=== PATIENT | female | born 1940 | race Asian ===

== ENCOUNTER 2017-01-11 06:46 | Emergency (ER) | payer MEDICARE, SELFPAY ==
[2017-01-11] MEDS ORDERED: Sodium Chloride 0.9% 500 ML IV SCH (06:55)
[2017-01-11 07:17] VITALS: BP 174/64
[2017-01-11] MEDS ORDERED: Acetaminophen 325 MG Tab PO ONE (07:17)
[2017-01-11] MEDS ORDERED: Ondansetron 4 MG/2 ML SDV IVPUSH ONE (07:22)
--- NOTE | 2017-01-11 07:41 | EDM.PDOC ---
ED HPI GENERAL MEDICAL PROBLEM - General Chief Complaint: Fever Stated Complaint: WELFARE CHECK Time Seen by Provider: 01/11/17 07:06 Source of Information: Reports: Patient, EMS History Limitations: Reports: Altered Mental Status, Physical Impairment - History of Present Illness INITIAL COMMENTS - FREE TEXT/NARRATIVE: 76 y.o.f with ESRD, on HD, was found down at home in disarray. On arrival, her BP was 177/76 pulse 110, Temp 39.1 pulse ox 99% on RA. Pt responds well to verbal stimuli but appears lethargic. Pt is a poor historian, no family is present. Onset: Gradual Onset Date: 01/11/17 Onset Time: 08:00 Duration: Hour(s): Location: Reports: Chest Quality: Reports: Dull Severity: Moderate - Related Data Allergies Allergy/AdvReac Type Severity Reaction Status Date / Time etodolac [From Lodine] Allergy Rash Verified 01/11/17 07:32 Iodinated Contrast- Oral and Allergy Swelling Verified 01/11/17 07:32 IV Dye [Iodinated Contrast Media - IV Dye] leflunomide [From Arava] Allergy Swollen Verified 01/11/17 07:32 Tongue morphine [From MS Contin] Allergy Itching Verified 01/11/17 07:32 naproxen [From Naprosyn] Allergy Hives Verified 01/11/17 07:32 Penicillins Allergy Hives Verified 01/11/17 07:32 prednisolone Allergy Cannot Verified 01/11/17 07:32 Remember SALMON OIL (HALIBUT LIVER Allergy Vomiting Uncoded 07/25/16 08:57 OIL) Home Meds: Home Meds Isosorbide Mononitrate [Imdur] 30 mg PO DAILY 08/31/15 [History] predniSONE [Prednisone] 5 mg PO DAILY 08/31/15 [History] Acetaminophen [Tylenol Extra Strength] 1,000 mg PO Q8HR PRN 07/25/16 [History] Albuterol/Ipratropium [Combivent Respimat] 1 puff IH BID 07/25/16 [History] Allopurinol [Allopurinol] 100 mg PO ASDIRECTED 07/25/16 [History] Aspirin [Adult Low Dose Aspirin EC] 81 mg PO DAILY 07/25/16 [History] Calcium Acetate 667 mg PO DAILY 07/25/16 [History] Calcium Carbonate/Vitamin D3 [Os-Abdiaziz 500+D] 1 each PO DAILY 07/25/16 [History] Clobetasol [Clobetasol Propionate 0.05%] 30 gm TOP BID PRN 07/25/16 [History] Clobetasol/Skin Cleanser #28 [Clodan 0.05% Kit] 1 each TP DAILY PRN 07/25/16 [ History] Cyclobenzaprine [Flexeril] 5 mg PO BID PRN 07/25/16 [History] Doxercalciferol [Hectorol] 0 - 10 mcg IV ASDIRECTED 07/25/16 [History] Epoetin Davon [Epogen] 0 - 60,000 unit IJ ASDIRECTED 07/25/16 [History] Esomeprazole [NexIUM] 40 mg PO DAILY 07/25/16 [History] Estrogens, Conjugated [Premarin Vaginal Crm] 1 gm VAG BEDTIME 07/25/16 [History] Ezetimibe [Zetia] 10 mg PO DAILY 07/25/16 [History] Fluticasone Propionate [Flonase] 2 spr CLAUDINE DAILY 07/25/16 [History] Fluticasone/Vilanterol [Breo Ellipta 200-25 Mcg INH] 1 puff ORAL.INH DAILY 07/25 [History] Folic Acid 1 mg PO DAILY 07/25/16 [History] Furosemide [Furosemide] 20 mg PO DAILY 07/25/16 [History] Gabapentin [Neurontin] 100 mg PO BID 07/25/16 [History] Hydrocodone/Acetaminophen [[place] 5-325 Tablet] 0.5 - 1 tab PO TID 07/25/16 [ History] Insulin Glarg,Human.Rec.Analog [Lantus Solostar] 5 units SUBCUT BID 07/25/16 [ History] LORazepam 0.5 mg PO BID 07/25/16 [History] Losartan [Cozaar] 100 mg PO DAILY 07/25/16 [History] Multivit with Calcium,Iron,Min [One Daily with Calcium-Iron] 1 tab PO DAILY [History] Niacin 500 mg PO BID 07/25/16 [History] Nitroglycerin [Nitrostat] 0.4 mg SL ASDIRECTED 07/25/16 [History] Metter-3/DHA/Epa/Fish Oil [Metter-3 Fish Oil 1,000 MG Sfgl] 1,000 mg PO DAILY [History] Protein Supplement [Protein Powder] 1 scoop PO BID 07/25/16 [History] Sertraline HCl [Sertraline HCl] 50 mg PO DAILY 07/25/16 [History] Sevelamer Carbonate [Renvela] 800 mg PO TID 07/25/16 [History] atorvaSTATin [Lipitor] 20 mg PO DAILY 07/25/16 [History] cloNIDine [Catapres-TTS 1] 2 patch TD Q7D 07/25/16 [History] hydrALAZINE [Apresoline] 50 mg PO TID 07/25/16 [History] Biotin 10,000 mcg PO 01/11/17 [History] Folic Acid 0.4 mg PO DAILY 01/11/17 [History] Vit A/Vit C/Vit E/Zinc/Copper [Preservision] 2 each PO DAILY 01/11/17 [History] fentaNYL [Fentanyl] 25 mcg TRDERM ASDIRECTED 01/11/17 [History] Past Medical History Cardiovascular History: Reports: Hypertension Genitourinary History: Reports: Chronic Renal Insuffiency, Dialysis, Renal Disease Musculoskeletal History: Reports: Arthritis Other Musculoskeletal History: R knee injection 08/30/2015, Neurological History: Reports: Vertigo Psychiatric History: Reports: Anxiety, Depression Endocrine/Metabolic History: Reports: Diabetes, Type II Hematologic History: Reports: Anemia, Blood Transfusion(s), Iron Deficiency - Infectious Disease History Infectious Disease History: Reports: Chicken Pox, Measles, Meningitis, Mumps - Past Surgical History HEENT Surgical History: Reports: Cataract Surgery Cardiovascular Surgical History: Reports: Coronary Artery Bypass Female Surgical History: Reports: Hysterectomy, Salpingo-Oophorectomy Neurological Surgical History: Reports: Spinal Fusion Musculoskeletal Surgical History: Reports: Carpal Tunnel, Shoulder Surgery Social & Family History - Family History Family Medical History: Noncontributory - Tobacco Use Smoking Status *Q: Never Smoker - Caffeine Use Caffeine Use: Reports: None - Alcohol Use Days Per Week of Alcohol Use: 0 - Recreational Drug Use Recreational Drug Use: No ED ROS GENERAL - Review of Systems Review Of Systems: Unable To Obtain ED EXAM, SEPSIS - Physical Exam Exam: See Below Exam Limited By: Altered Mental Status General Appearance: Alert, Lethargic, Thin Eye Exam: Bilateral Eye: Normal Inspection Ears: Normal External Exam Nose: Normal Inspection Throat/Mouth: Normal Inspection Head: Atraumatic, Normocephalic Neck: Normal Inspection, Supple, Non-Tender Respiratory/Chest: Decreased Breath Sounds (poor insp effort), Crackles Cardiovascular: Normal Peripheral Pulses, Regular Rate, Rhythm, No Edema Peripheral Pulses: 1+: Femoral (L), Femoral (R) GI/Abdominal: Normal Bowel Sounds, Soft (Female) Exam: Deferred Rectal (Female) Exam: Deferred Back: Normal Inspection, Full Range of Motion Extremities: Normal Inspection, Normal Range of Motion Neurological: Slow to Respond Psychiatric: Normal Affect Skin: Warm, Dry Lymphatic: Bilateral: No Adenopathy EKG INTERPRETATION EKG Date: 01/11/17 Time: 07:35 Rhythm: NSR Rate (Beats/Min): 108 [place]: Normal P-Wave: Present QRS: Normal ST-T: Normal QT: Normal Comparison: NA - No Prior EKG Course - Vital Signs Text/Narrative:: 76 y.o.f with ESRD, on HD, was found down at home in disarray. On arrival, her BP was 177/76 pulse 110, Temp 39.1 pulse ox 99% on RA. Pt responds well to verbal stimuli but appears lethargic. Pt is a poor historian, no family is present. Pt does not make urine, missed HD today. PE: Lethargic, responds to verbal stimuli well, thin, HD is working. poor insp effort, Temp 39.1 BP 177/87 Pulse ox 99 on RA Imaging: CXR NAD Labs: K 6.3 Cr 10.3 GFR 4 Lactic acid 1.8, ABG: pH 7.40 WBC 15.4 Consultation: [facility]: No Beds Consultation: Dr. Castañeda, Hospitalist: Accepted the pt for transfere and admission. Wants ABX started before transfer. Impression: Hyperkalemia, ESRD Tx: Hyperkalemia protocol. (CaCL, D50/insulin, Kayexalate, Albut neb, NS) Reexam: Pt improved, Plan: Transfer to [facility] Last Recorded V/S: Last Vital Signs Temp 39.1 C H 01/11/17 07:06 Pulse 111 H 01/11/17 08:34 Resp 20 01/11/17 07:06 BP 174/64 H 01/11/17 07:06 Pulse Ox 87 L 01/11/17 09:30 - Orders/Labs/Meds Orders: Active Orders 24 hr Category Date Time Status Oxygen Therapy Adult [Oxygen Therapy, ED] [RC] Care 01/11/17 10:25 Active ASDIRECTED RT Aerosol Therapy [RC] ASDIRECTED Care 01/11/17 08:11 Active ABG [BLOOD GAS ARTERIAL] [BG] Stat Lab 01/11/17 09:15 Results CULTURE BLOOD [BC] Urgent Lab 01/11/17 07:30 Received CULTURE BLOOD [BC] Urgent Lab 01/11/17 07:40 Received Blood Culture x2 Reflex Set [OM.PC] Urgent Oth 01/11/17 07:21 Ordered EKG 12 Lead [EK] Routine Ther 01/11/17 07:07 Ordered Labs: Laboratory Tests 01/11/17 01/11/17 01/11/17 Range/Units 07:30 07:30 07:30 WBC 15.8 H (4.5-12.0) X10-3/uL RBC 4.06 (3.23-5.20) x10(6)uL Hgb 13.3 (11.5-15.5) g/dL Hct 40.0 (30.0-51.3) % MCV 98.4 H (80-96) fL MCH 32.7 (27.7-33.6) pg MCHC 33.2 (32.2-35.4) g/dL RDW 14.9 (11.5-15.5) % Plt Count 134 (125-369) X10(3)uL MPV 9.7 (7.4-10.4) fL Add Manual Diff Yes Neutrophils % (Manual) 61 (46-82) % Band Neutrophils % 6 (0-6) % Lymphocytes % (Manual) 30 (13-37) % Monocytes % (Manual) 3 L (4-12) % PT 12.0 H (8.7-11.1) INR 1.19 H (0.89-1.13) ABG pH (7.35-7.45) ABG pCO2 (35-45) mmHg ABG pO2 (83-108) mmHg ABG HCO3 (22-26) mmol/L ABG O2 Saturation (96-97) % ABG Base Excess (-2-2) O2 Delivery Device Sodium 138 (135-145) mmol/L Potassium 6.3 H* D (3.5-5.3) mmol/L Chloride 95 L (100-110) mmol/L Carbon Dioxide 26 (23-29) mmol/L BUN 58 H D (8-23) mg/dL Creatinine 10.4 H* (0.6-1.3) mg/dL Est Cr Clr Drug Dosing 3.30 mL/min Estimated GFR (MDRD) 4 L (>60) BUN/Creatinine Ratio 5.6 L (9-20) Glucose 144 H D (80-116) mg/dL Lactic Acid (0.5-2.2) mmol/L Calcium 8.1 L (8.6-10.2) mg/dL Creatine Kinase 151 (60-160) IU/L Troponin I (0.02-0.06) NG/ML B-Natriuretic Peptide (0-100) pg/mL 01/11/17 01/11/17 01/11/17 Range/Units 07:30 07:30 07:30 WBC (4.5-12.0) X10-3/uL RBC (3.23-5.20) x10(6)uL Hgb (11.5-15.5) g/dL Hct (30.0-51.3) % MCV (80-96) fL MCH (27.7-33.6) pg MCHC (32.2-35.4) g/dL RDW (11.5-15.5) % Plt Count (125-369) X10(3)uL MPV (7.4-10.4) fL Add Manual Diff Neutrophils % (Manual) (46-82) % Band Neutrophils % (0-6) % Lymphocytes % (Manual) (13-37) % Monocytes % (Manual) (4-12) % PT (8.7-11.1) INR (0.89-1.13) ABG pH (7.35-7.45) ABG pCO2 (35-45) mmHg ABG pO2 (83-108) mmHg ABG HCO3 (22-26) mmol/L ABG O2 Saturation (96-97) % ABG Base Excess (-2-2) O2 Delivery Device Sodium (135-145) mmol/L Potassium (3.5-5.3) mmol/L Chloride (100-110) mmol/L Carbon Dioxide (23-29) mmol/L BUN (8-23) mg/dL Creatinine (0.6-1.3) mg/dL Est Cr Clr Drug Dosing mL/min Estimated GFR (MDRD) (>60) BUN/Creatinine Ratio (9-20) Glucose (80-116) mg/dL Lactic Acid 1.8 (0.5-2.2) mmol/L Calcium (8.6-10.2) mg/dL Creatine Kinase (60-160) IU/L Troponin I 0.10 H (0.02-0.06) NG/ML B-Natriuretic Peptide 714 H (0-100) pg/mL 01/11/17 Range/Units 09:15 WBC (4.5-12.0) X10-3/uL RBC (3.23-5.20) x10(6)uL Hgb (11.5-15.5) g/dL Hct (30.0-51.3) % MCV (80-96) fL MCH (27.7-33.6) pg MCHC (32.2-35.4) g/dL RDW (11.5-15.5) % Plt Count (125-369) X10(3)uL MPV (7.4-10.4) fL Add Manual Diff Neutrophils % (Manual) (46-82) % Band Neutrophils % (0-6) % Lymphocytes % (Manual) (13-37) % Monocytes % (Manual) (4-12) % PT (8.7-11.1) INR (0.89-1.13) ABG pH 7.40 (7.35-7.45) ABG pCO2 38 (35-45) mmHg ABG pO2 58 L (83-108) mmHg ABG HCO3 23 (22-26) mmol/L ABG O2 Saturation 90 L (96-97) % ABG Base Excess -1.3 (-2-2) O2 Delivery Device Room air Sodium (135-145) mmol/L Potassium (3.5-5.3) mmol/L Chloride (100-110) mmol/L Carbon Dioxide (23-29) mmol/L BUN (8-23) mg/dL Creatinine (0.6-1.3) mg/dL Est Cr Clr Drug Dosing mL/min Estimated GFR (MDRD) (>60) BUN/Creatinine Ratio (9-20) Glucose (80-116) mg/dL Lactic Acid (0.5-2.2) mmol/L Calcium (8.6-10.2) mg/dL Creatine Kinase (60-160) IU/L Troponin I (0.02-0.06) NG/ML B-Natriuretic Peptide (0-100) pg/mL Meds: Medications Discontinued Medications Generic Name Dose Route Start Last Admin Trade Name Freq PRN Reason Stop Dose Admin Acetaminophen 650 mg 01/11/17 07:17 01/11/17 07:20 Tylenol PO 01/11/17 07:18 650 mg ONETIME ONE Administration Albuterol 2.5 mg 01/11/17 08:10 01/11/17 08:25 Proventil Neb Soln NEB 01/11/17 14:11 2.5 mg Q2H PRN Administration Hyperkalemia Calcium Chloride 1 gm 01/11/17 08:10 01/11/17 08:49 Calcium Chloride 10% IV 01/11/17 08:11 1 gm ONETIME ONE Administration Dextrose/Water 50 ml 01/11/17 08:10 01/11/17 09:15 Dextrose 50% In Water IVPUSH 01/11/17 08:11 50 ml ONETIME ONE Administration Sodium Chloride 500 mls @ 999 mls/hr 01/11/17 06:55 01/11/17 06:55 Normal Saline IV 999 mls/hr ASDIRECTED RADHA Administration Levofloxacin/Dextrose 750 mg/ 150 mls @ 100 mls/hr 01/11/17 09:00 01/11/17 09 :56 Premix IV 01/11/17 10:29 100 mls/hr ONETIME ONE Administration Insulin Human Regular 10 unit 01/11/17 08:10 01/11/17 09:23 Humulin R IVPUSH 01/11/17 08:11 10 units ONETIME ONE Administration Ondansetron HCl 4 mg 01/11/17 07:22 01/11/17 07:35 Zofran IVPUSH 01/11/17 07:23 4 mg ONETIME ONE Administration Sodium Bicarbonate 50 meq 01/11/17 08:10 01/11/17 09:34 Sodium Bicarbonate 8.4% IVPUSH 01/11/17 08:11 50 meq ONETIME ONE Administration Sodium Polystyrene Sulfonate 15 gm 01/11/17 08:10 01/11/17 08:58 Kayexalate PO 01/11/17 08:11 15 gm ONETIME ONE Administration Departure - Departure Time of Disposition: 10:29 Disposition: DC/Tfer to Acute Hospital 02 Condition: Fair Clinical Impression: Hyperkalemia, diminished renal excretion - Discharge Information Referrals: Shan Young MD [Primary Care Provider] - Forms: ED Department Discharge - My Orders Last 24 Hours: My Active Orders 01/11/17 07:07 EKG 12 Lead [EK] Routine 01/11/17 07:21 Blood Culture x2 Reflex Set [OM.PC] Urgent 01/11/17 07:30 CULTURE BLOOD [BC] Urgent 01/11/17 07:40 CULTURE BLOOD [BC] Urgent 01/11/17 08:11 RT Aerosol Therapy [RC] ASDIRECTED 01/11/17 09:15 ABG [BLOOD GAS ARTERIAL] [BG] Stat 01/11/17 10:25 Oxygen Therapy Adult [Oxygen Therapy, ED] [RC] ASDIRECTED - Assessment/Plan Last 24 Hours: My Active Orders 01/11/17 07:07 EKG 12 Lead [EK] Routine 01/11/17 07:21 Blood Culture x2 Reflex Set [OM.PC] Urgent 01/11/17 07:30 CULTURE BLOOD [BC] Urgent 01/11/17 07:40 CULTURE BLOOD [BC] Urgent 01/11/17 08:11 RT Aerosol Therapy [RC] ASDIRECTED 01/11/17 09:15 ABG [BLOOD GAS ARTERIAL] [BG] Stat 01/11/17 10:25 Oxygen Therapy Adult [Oxygen Therapy, ED] [RC] ASDIRECTED
[2017-01-11] MEDS ORDERED: Levofloxacin/Dextrose 5%-Water 500 MG in Premix Bag 1 BAG IV ONE (07:59)
[2017-01-11] MEDS ORDERED: Albuterol 0.083% 2.5 MG/3 ML Neb Soln NEB PRN (08:10)
[2017-01-11] MEDS ORDERED: Sodium Bicarbonate 8.4% 50 MEQ/50 ML SDV IVPUSH ONE (08:10)
[2017-01-11] MEDS ORDERED: Insulin Regular, Human 100 Units/ML 3 ML Vial IVPUSH ONE (08:10)
[2017-01-11] MEDS ORDERED: Sodium Polystyrene Sulfonate 15 GM/60 ML Susp 60 ML Bot PO ONE (08:10)
[2017-01-11] MEDS ORDERED: Calcium Chloride 10% 1 GM/10 ML Syringe IV ONE (08:10)
[2017-01-11] MEDS ORDERED: 50% Dextrose in Water 50 ML Syringe IVPUSH ONE (08:10)
[2017-01-11] MEDS ORDERED: Levofloxacin/Dextrose 5%-Water 150 ML IV ONE (09:00)
[2017-01-11] MEDS ORDERED: Levofloxacin/Dextrose 5%-Water 750 MG in Premix Bag 1 BAG IV ONE (09:00)
--- NOTE | 2017-01-11 10:43 | CR ---
INDICATION: Short of breath. CHEST: An AP upright portable view of the chest, 01/11/2017, was compared with 08/31/2015, revealing median sternotomy as previously with the heart appearing somewhat enlarged, emphasized by poor inspiration. The aorta is tortuous and calcified in the arch and descending portion, as previously. While a definite active infiltrate or effusion was not identified, (no consolidating pneumonia or effusion was seen), it is difficult to entirely exclude a minimal patchy bronchopneumonia at the lung bases due to the poor inspiration. IMPRESSION: 1. No definite acute process, but difficult to exclude minimal patchy bronchopneumonia at the lung bases. 2. ASHD with cardiomegaly and post median sternotomy change. MTDD
== END 2017-01-11 10:20 ==
LOC: FB.ED 06:46
DX: E11.22 Type 2 diabetes mellitus with diabetic chronic kidney disease (principal); I12.0 Hypertensive chronic kidney disease with stage 5 chronic kidney disease or end stage renal disease; N18.6 End stage renal disease; E87.5 Hyperkalemia; Z99.2 Dependence on renal dialysis; Z98.49 Cataract extraction status, unspecified eye; Z95.1 Presence of aortocoronary bypass graft; Z90.710 Acquired absence of both cervix and uterus; Z90.721 Acquired absence of ovaries, unilateral; Z98.890 Other specified postprocedural states; Z79.899 Other long term (current) drug therapy; Z79.82 Long term (current) use of aspirin; Z79.4 Long term (current) use of insulin; Z79.84 Long term (current) use of oral hypoglycemic drugs; Z88.0 Allergy status to penicillin; Z88.8 Allergy status to other drugs, medicaments and biological substances; Z88.5 Allergy status to narcotic agent; Z91.09 Other allergy status, other than to drugs and biological substances
CPT/HCPCS: 36415; 36600; 71010; 80048; 82550; 82803; 83605; 83880; 84484; 85025; 85610; 87040; 93005; 94664; 96361; 96374; 96375; 99284; A9270; J1815; J1956; J2405; J7040; J3490

== ENCOUNTER 2017-04-30 16:52 | Emergency (ER) | payer MEDICARE ==
[2017-04-30] MEDS ORDERED: Sodium Chloride 0.9% 10 ML Syringe FLUSH PRN (16:53)
[2017-04-30] MEDS ORDERED: Labetalol 20 MG/4 ML Syringe IVPUSH ONE ×2 (17:25→18:30)
--- NOTE | 2017-04-30 18:09 | EDM.PDOC ---
ED HPI GENERAL MEDICAL PROBLEM - General Stated Complaint: VOMITTING Time Seen by Provider: 04/30/17 18:08 Source of Information: Reports: Patient, Family - History of Present Illness INITIAL COMMENTS - FREE TEXT/NARRATIVE: 76 y.o.f. with ESRD on HD 3 x per week, last HD last Sunday, came to the ed with the worst Headache ever. Her BP was 264/54, no vision changes. No trauma. Pt i a poor historian, no family is present. Pt was dropped off and family member left. No F/C, no N/V not able to pass urine for some time, poor historian headache Pain Score (Numeric/FACES): 10 - Related Data Allergies Allergy/AdvReac Type Severity Reaction Status Date / Time etodolac [From Lodine] Allergy Rash Verified 04/30/17 18:09 Iodinated Contrast- Oral and Allergy Swelling Verified 04/30/17 18:09 IV Dye [Iodinated Contrast Media - IV Dye] leflunomide [From Arava] Allergy Swollen Verified 04/30/17 18:09 Tongue morphine [From MS Contin] Allergy Itching Verified 04/30/17 18:09 naproxen [From Naprosyn] Allergy Hives Verified 04/30/17 18:09 Penicillins Allergy Hives Verified 04/30/17 18:09 prednisolone Allergy Cannot Verified 04/30/17 18:09 Remember SALMON OIL (HALIBUT LIVER Allergy Vomiting Uncoded 04/30/17 18:09 OIL) Home Meds: Home Meds Isosorbide Mononitrate [Imdur] 30 mg PO DAILY 08/31/15 [History] predniSONE [Prednisone] 5 mg PO DAILY 08/31/15 [History] Acetaminophen [Tylenol Extra Strength] 1,000 mg PO Q8HR PRN 07/25/16 [History] Albuterol/Ipratropium [Combivent Respimat] 1 puff IH BID 07/25/16 [History] Allopurinol [Allopurinol] 100 mg PO ASDIRECTED 07/25/16 [History] Aspirin [Adult Low Dose Aspirin EC] 81 mg PO DAILY 07/25/16 [History] Calcium Acetate 667 mg PO DAILY 07/25/16 [History] Calcium Carbonate/Vitamin D3 [Os-Abdiaziz 500+D] 1 each PO DAILY 07/25/16 [History] Clobetasol [Clobetasol Propionate 0.05%] 30 gm TOP BID PRN 07/25/16 [History] Clobetasol/Skin Cleanser #28 [Clodan 0.05% Kit] 1 each TP DAILY PRN 07/25/16 [ History] Cyclobenzaprine [Flexeril] 5 mg PO BID PRN 07/25/16 [History] Doxercalciferol [Hectorol] 0 - 10 mcg IV ASDIRECTED 07/25/16 [History] Epoetin Davon [Epogen] 0 - 60,000 unit IJ ASDIRECTED 07/25/16 [History] Esomeprazole [NexIUM] 40 mg PO DAILY 07/25/16 [History] Estrogens, Conjugated [Premarin Vaginal Crm] 1 gm VAG BEDTIME 07/25/16 [History] Ezetimibe [Zetia] 10 mg PO DAILY 07/25/16 [History] Fluticasone Propionate [Flonase] 2 spr CLAUDINE DAILY 07/25/16 [History] Fluticasone/Vilanterol [Breo Ellipta 200-25 Mcg INH] 1 puff ORAL.INH DAILY 07/25 [History] Folic Acid 1 mg PO DAILY 07/25/16 [History] Furosemide [Furosemide] 20 mg PO DAILY 07/25/16 [History] Gabapentin [Neurontin] 100 mg PO BID 07/25/16 [History] Hydrocodone/Acetaminophen [Ariel 5-325 Tablet] 0.5 - 1 tab PO TID 07/25/16 [ History] Insulin Glarg,Human.Rec.Analog [Lantus Solostar] 5 units SUBCUT BID 07/25/16 [ History] LORazepam 0.5 mg PO BID 07/25/16 [History] Losartan [Cozaar] 100 mg PO DAILY 07/25/16 [History] Multivit with Calcium,Iron,Min [One Daily with Calcium-Iron] 1 tab PO DAILY [History] Niacin 500 mg PO BID 07/25/16 [History] Nitroglycerin [Nitrostat] 0.4 mg SL ASDIRECTED 07/25/16 [History] Bethany-3/DHA/Epa/Fish Oil [Bethany-3 Fish Oil 1,000 MG Sfgl] 1,000 mg PO DAILY [History] Protein Supplement [Protein Powder] 1 scoop PO BID 07/25/16 [History] Sertraline HCl [Sertraline HCl] 50 mg PO DAILY 07/25/16 [History] Sevelamer Carbonate [Renvela] 800 mg PO TID 07/25/16 [History] atorvaSTATin [Lipitor] 20 mg PO DAILY 07/25/16 [History] cloNIDine [Catapres-TTS 1] 2 patch TD Q7D 07/25/16 [History] hydrALAZINE [Apresoline] 50 mg PO TID 07/25/16 [History] Biotin 10,000 mcg PO 01/11/17 [History] Folic Acid 0.4 mg PO DAILY 01/11/17 [History] Vit A/Vit C/Vit E/Zinc/Copper [Preservision] 2 each PO DAILY 01/11/17 [History] fentaNYL [Fentanyl] 25 mcg TRDERM ASDIRECTED 01/11/17 [History] Past Medical History Cardiovascular History: Reports: Hypertension Gastrointestinal History: Reports: Cholelithiasis Genitourinary History: Reports: Chronic Renal Insuffiency, Dialysis, Renal Disease Musculoskeletal History: Reports: Arthritis Other Musculoskeletal History: R knee injection 08/30/2015, Neurological History: Reports: Vertigo Psychiatric History: Reports: Anxiety, Depression Endocrine/Metabolic History: Reports: Diabetes, Type II Hematologic History: Reports: Anemia, Blood Transfusion(s), Iron Deficiency - Infectious Disease History Infectious Disease History: Reports: Chicken Pox, Measles, Meningitis, Mumps - Past Surgical History HEENT Surgical History: Reports: Cataract Surgery Cardiovascular Surgical History: Reports: Coronary Artery Bypass Female Surgical History: Reports: Hysterectomy, Salpingo-Oophorectomy Neurological Surgical History: Reports: Spinal Fusion Musculoskeletal Surgical History: Reports: Carpal Tunnel, Shoulder Surgery Social & Family History - Family History Family Medical History: Noncontributory - Tobacco Use Smoking Status *Q: Never Smoker - Caffeine Use Caffeine Use: Reports: None - Alcohol Use Days Per Week of Alcohol Use: 0 - Recreational Drug Use Recreational Drug Use: No ED ROS GENERAL - Review of Systems Review Of Systems: Unable To Obtain - Physical Exam Exam: See Below Exam Limited By: Altered Mental Status General Appearance: Alert, WD/WN, Moderate Distress Eye Exam: Bilateral Eye: EOMI Ears: Normal External Exam Nose: Normal Inspection Throat/Mouth: Normal Inspection Head Exam: Atraumatic, Normocephalic Neck: Normal Inspection, Supple, Non-Tender Respiratory/Chest: No Respiratory Distress, Lungs Clear, Normal Breath Sounds Cardiovascular: Normal Peripheral Pulses, Regular Rate, Rhythm GI/Abdominal: Normal Bowel Sounds, Soft, Non-Tender, No Organomegaly (Female) Exam: Deferred Rectal (Female) Exam: Deferred Neuro Exam (Abbreviated): Alert, CN II-XII Intact, Other (gate not tested) Back Exam: Normal Inspection, Full Range of Motion Extremities: Normal Inspection, Normal Range of Motion, Non-Tender Psychiatric: Anxious Skin Exam: Warm, Dry, Intact, Pallor EKG INTERPRETATION EKG Date: 04/30/17 Time: 17:55 Rhythm: NSR Rate (Beats/Min): 72 Cullen: Normal P-Wave: Present QRS: Normal ST-T: Normal QT: Normal Comparison: NA - No Prior EKG Course - Vital Signs Text/Narrative:: 76 y.o.f. with ESRD on HD 3 x per week, last HD last Sunday, came to the ed with the worst Headache ever. Her BP was 264/54, no vision changes. No trauma. Pt i a poor historian, no family is present. Pt was dropped off and family member left. No F/C, no N/V not able to pass urine for some time, poor historian PE: Pale, with severe RODRIGUEZ, EOMI, pt was bale to saw my fingers moving and numbers of fingers, neck supple, lungs clear, abd. soft. neuro: No focal weaknesses, holding hand and legs up >5 sec, equally. Imaging: CT Head: No acute bleed, however, there a changes at her r occipital lobe and r frontal lobe, gen atrophy as per RAD. MRI recommended Labs; WBC 15.7 HBG 12.6 INR 2.94 GFR < 6, K 4.8 Na 132 BUN 84 Cr. 6.8 Glc 188 UA not available Impression: Hypertensive emergency, ESRD, poss CVA(?) Tx: Labetolol iv, labetolol drip Reexam: Improved 6.[address] Griffin, Hospitalist, [facility]: accepted the pt to be admitted to the ICU Plan: Transfer to ICU [place]: No neurologist/concrete products machine operator available Last Recorded V/S: Last Vital Signs Temp 36.8 C 04/30/17 19:00 Pulse 73 04/30/17 19:15 Resp 20 04/30/17 19:00 BP 236/47 H 04/30/17 19:15 Pulse Ox 94 L 04/30/17 19:00 - Orders/Labs/Meds Orders: Active Orders 24 hr Category Date Time Status EKG Documentation Completion [RC] ASDIRECTED Care 04/30/17 17:25 Active Head wo Cont [CT] Stat Exams 04/30/17 16:53 Taken Peripheral IV Insertion Adult [OM.PC] Routine Oth 04/30/17 16:53 Ordered EKG 12 Lead [EK] Routine Ther 04/30/17 17:24 Ordered Labs: Laboratory Tests 04/30/17 04/30/17 04/30/17 Range/Units 17:04 17:35 17:35 WBC 15.3 H (4.5-12.0) X10-3/uL RBC 3.95 (3.23-5.20) x10(6)uL Hgb 12.7 (11.5-15.5) g/dL Hct 38.1 (30.0-51.3) % MCV 96.7 H (80-96) fL MCH 32.2 (27.7-33.6) pg MCHC 33.3 (32.2-35.4) g/dL RDW 17.0 H (11.5-15.5) % Plt Count 157 (125-369) X10(3)uL MPV 9.2 (7.4-10.4) fL Add Manual Diff Yes Neutrophils % (Manual) 74 (46-82) % Band Neutrophils % 1 (0-6) % Lymphocytes % (Manual) 20 (13-37) % Monocytes % (Manual) 5 (4-12) % Anisocytosis Few PT 30.4 H (8.7-11.1) INR 2.94 H (0.89-1.13) Sodium (135-145) mmol/L Potassium (3.5-5.3) mmol/L Chloride (100-110) mmol/L Carbon Dioxide (23-29) mmol/L BUN (8-23) mg/dL Creatinine (0.6-1.3) mg/dL Est Cr Clr Drug Dosing Estimated GFR (MDRD) (>60) BUN/Creatinine Ratio (9-20) Glucose (80-116) mg/dL POC Glucose 180 H (80-116) mg/dL Calcium (8.6-10.2) mg/dL 04/30/17 Range/Units 17:35 WBC (4.5-12.0) X10-3/uL RBC (3.23-5.20) x10(6)uL Hgb (11.5-15.5) g/dL Hct (30.0-51.3) % MCV (80-96) fL MCH (27.7-33.6) pg MCHC (32.2-35.4) g/dL RDW (11.5-15.5) % Plt Count (125-369) X10(3)uL MPV (7.4-10.4) fL Add Manual Diff Neutrophils % (Manual) (46-82) % Band Neutrophils % (0-6) % Lymphocytes % (Manual) (13-37) % Monocytes % (Manual) (4-12) % Anisocytosis PT (8.7-11.1) INR (0.89-1.13) Sodium 132 L (135-145) mmol/L Potassium 4.8 D (3.5-5.3) mmol/L Chloride 90 L D (100-110) mmol/L Carbon Dioxide 25 (23-29) mmol/L BUN 84 H D (8-23) mg/dL Creatinine 6.8 H* (0.6-1.3) mg/dL Est Cr Clr Drug Dosing TNP Estimated GFR (MDRD) 6 L (>60) BUN/Creatinine Ratio 12.4 (9-20) Glucose 188 H (80-116) mg/dL POC Glucose (80-116) mg/dL Calcium 7.9 L (8.6-10.2) mg/dL Meds: Medications Discontinued Medications Generic Name Dose Route Start Last Admin Trade Name Freq PRN Reason Stop Dose Admin Labetalol HCl 100 mg/ Sodium 100 mls @ 30 mls/hr 04/30/17 18:30 04/30/17 19: 15 Chloride IV 0.5 mg/min TITRATE RADHA 30 mls/hr Protocol Administration 0.5 MG/MIN Labetalol HCl 20 mg 04/30/17 17:25 04/30/17 17:37 Normodyne IVPUSH 04/30/17 17:26 20 mg ONETIME ONE Administration Protocol Labetalol HCl 10 mg 04/30/17 18:30 04/30/17 18:34 Normodyne IVPUSH 04/30/17 18:31 10 mg ONETIME ONE Administration Protocol Sodium Chloride 10 ml 04/30/17 16:53 04/30/17 17:37 Saline Flush FLUSH 10 ml ASDIRECTED PRN Administration Keep Vein Open Departure - Departure Time of Disposition: 19:00 Disposition: DC/Tfer to Acute Hospital 02 Condition: Fair Clinical Impression: Hypertensive emergency, End-stage renal disease (ESRD) - Discharge Information Referrals: Shan Young MD [Primary Care Provider] - - My Orders Last 24 Hours: My Active Orders 04/30/17 16:53 Head wo Cont [CT] Stat Peripheral IV Insertion Adult [OM.PC] Routine 04/30/17 17:24 EKG 12 Lead [EK] Routine 04/30/17 17:25 EKG Documentation Completion [RC] ASDIRECTED - Assessment/Plan Last 24 Hours: My Active Orders 04/30/17 16:53 Head wo Cont [CT] Stat Peripheral IV Insertion Adult [OM.PC] Routine 04/30/17 17:24 EKG 12 Lead [EK] Routine 04/30/17 17:25 EKG Documentation Completion [RC] ASDIRECTED
[2017-04-30] MEDS ORDERED: Labetalol 100 MG in Sodium Chloride 0.9% 80 ML IV SCH (18:30)
[2017-04-30 19:19] VITALS: BP 236/47
--- NOTE | 2017-05-01 08:47 | CT ---
INDICATION: Worst headache ever - frontal area x8 hours. CT HEAD WITHOUT CONTRAST: Serial contiguous 2.5 and 5-mm sections were obtained through the brain without contrast 04/30/2017 and compared with [place] images from 03/05/2016. There is again no shift of midline structures or ventricular abnormalities. Frontal cortical atrophy is noted compared with the previous examination. Also new, compared with the previous examination, is an area of what appears to be encephalomalacia in the right occipital lobe - no deformity of the right lateral ventricle is noted to suggest a definite acute abnormality in that area. 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 No other abnormal areas of density were identified - no bleeding site or hematoma was seen. Visualized paranasal sinuses and mastoid air cells were well aerated. No definite cranial abnormality was seen. Calcifications are noted in the vertebral and internal carotid arteries. IMPRESSION: 1. No definite acute intracranial abnormality. 2. 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 3. Interval progressive atrophy, frontal cortical in location. 4. Calcifications are noted in the vertebral and internal carotid arteries. Report was called to Dr. Kim at 1735 hours, 04/30/2017. Total Exam DLP = 805.50 mGy-cm. MTDD
== END 2017-04-30 19:25 ==
LOC: FB.ED 16:52
DX: I16.1 Hypertensive emergency (principal); I12.0 Hypertensive chronic kidney disease with stage 5 chronic kidney disease or end stage renal disease; N18.6 End stage renal disease; E11.22 Type 2 diabetes mellitus with diabetic chronic kidney disease; M19.90 Unspecified osteoarthritis, unspecified site; Z88.8 Allergy status to other drugs, medicaments and biological substances; Z88.0 Allergy status to penicillin
CPT/HCPCS: 36415; 70450; 80048; 82962; 85025; 85610; 93005; 96374; 96376; 99285; J7050

== ENCOUNTER 2017-09-28 07:38 | Day surgery (SDC) | payer MEDICARE ==
[2017-09-28] MEDS ORDERED: Sodium Chloride 0.9% 10 ML Syringe FLUSH PRN (08:15)
[2017-09-28] MEDS ORDERED: Lactated Ringers 1,000 ML IV SCH (08:15)
[2017-09-28] MEDS ORDERED: Propofol 200 MG/20 ML SDV IV ONE (10:00)
--- NOTE | 2017-09-28 10:32 | PCM.OPNOTE ---
- General Post-Op/Procedure Note Date of Surgery/Procedure: 09/28/17 Operative Procedure(s): egd with bx Findings: wide open esophagus antritis Pre Op Diagnosis: dysphagia Post-Op Diagnosis: wide open esophagus. antritis Anesthesia Technique: MAC Primary Surgeon: Monroe Vásquez Anesthesia Provider: Von Lyons Pathology: stomach and esophagus Complications: None Condition: Good Free Text/Narrative:: see dictation
[2017-09-28 10:57] VITALS: BP 128/66
--- NOTE | 2017-09-28 12:54 | OR ---
DATE OF OPERATION: 09/28/2017 SURGEON: Monroe Vásquez MD PROCEDURE PERFORMED: Esophagogastroduodenoscopy with cold forceps biopsy. PREOPERATIVE DIAGNOSIS: Dysphagia. POSTOPERATIVE DIAGNOSIS: Normal esophagus with no stricture and antritis. INDICATIONS FOR PROCEDURE: This is a 77-year-old [place], who was referred with a history of some dysphagia with both liquids and solids. Reports she has issues with choking and bringing things up. She was offered and accepted an EGD. DESCRIPTION OF PROCEDURE: After an excellent IV sedation was administered, the bite block was inserted. The flexible endoscope was passed without difficulty down the patient's esophagus into the stomach. The stomach was insufflated. The scope was passed through the pylorus to the second portion of the duodenum and slowly withdrawn. The following findings were noted: Duodenum was unremarkable. The stomach had a little patch of antritis. Biopsies were taken. Otherwise unremarkable. GE junction measured at 35 cm. The esophagus demonstrated no marked abnormalities, strictures, masses, or tumors. I did take some biopsies of the distal esophagus due to her complaint of dysphagia. After completing that, the scope was withdrawn. The patient tolerated the procedure well and was taken to recovery room in good condition. /[id number] /FABIAN
== END 2017-09-28 11:24 | disposition home or self-care (01) ==
LOC: FB.SDS 07:38
PROVIDERS: ATTEND Surgery
DX: K29.40 Chronic atrophic gastritis without bleeding (principal); E11.22 Type 2 diabetes mellitus with diabetic chronic kidney disease; I12.0 Hypertensive chronic kidney disease with stage 5 chronic kidney disease or end stage renal disease; N18.6 End stage renal disease; I25.10 Atherosclerotic heart disease of native coronary artery without angina pectoris; E78.5 Hyperlipidemia, unspecified; E87.5 Hyperkalemia; I25.2 Old myocardial infarction; F41.9 Anxiety disorder, unspecified; Z88.0 Allergy status to penicillin; Z99.2 Dependence on renal dialysis; Z88.8 Allergy status to other drugs, medicaments and biological substances; Z91.041 Radiographic dye allergy status; Z91.018 Allergy to other foods; Z79.899 Other long term (current) drug therapy; Z87.891 Personal history of nicotine dependence
CPT/HCPCS: 00731; 43239; 82962; 88305; 88342; J2704; J7120

== ENCOUNTER 2018-01-27 07:31 | Emergency (ER) | payer MEDICARE ==
[2018-01-27] MEDS ORDERED: Phytonadione 5 MG in Sodium Chloride 0.9% 50 ML IV ONE (08:34)
[2018-01-27] MEDS ORDERED: Sodium Chloride 0.9% 10 ML Syringe FLUSH PRN (08:37)
--- NOTE | 2018-01-27 08:38 | EDM.PDOC ---
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 This has been occurring over the past 36 hrs. She has changed the bandage 8 times since arrival yesterday, and additional times overnight. She routinely gets dialysis at [facility] 3 times per week over the past 4 years. She is on Warfarin for PMH of AF. - Related Data Allergies Allergy/AdvReac Type Severity Reaction Status Date / Time etodolac [From Lodine] Allergy Rash Verified 01/27/18 08:36 Iodinated Contrast- Oral and Allergy Swelling Verified 01/27/18 08:36 IV Dye [Iodinated Contrast Media - IV Dye] iodine Allergy Swelling Verified 01/27/18 08:36 leflunomide [From Arava] Allergy Swollen Verified 01/27/18 08:36 Tongue morphine [From MS Contin] Allergy Itching Verified 01/27/18 08:36 naproxen [From Naprosyn] Allergy Hives Verified 01/27/18 08:36 Penicillins Allergy Hives Verified 01/27/18 08:36 prednisolone Allergy Cannot Verified 01/27/18 08:36 Remember SALMON OIL (HALIBUT LIVER Allergy Vomiting Uncoded 01/27/18 08:36 OIL) Home Meds: Home Meds Isosorbide Mononitrate [Imdur] 30 mg PO DAILY 08/31/15 [History] predniSONE [Prednisone] 5 mg PO DAILY 08/31/15 [History] Acetaminophen [Tylenol Extra Strength] 1,000 mg PO Q8HR PRN 07/25/16 [History] Allopurinol 100 mg PO ASDIRECTED 07/25/16 [History] Calcium Acetate 667 mg PO DAILY 07/25/16 [History] Calcium Carbonate/Vitamin D3 [Os-Abdiaziz 500+D] 1 each PO DAILY 07/25/16 [History] Clobetasol [Clobetasol 0.05%] 1 applic TOP BEDTIME 07/25/16 [History] Clobetasol/Skin Cleanser No.28 [[place] 0.05% Kit] 1 each TP DAILY PRN 07/25/16 [ History] Cyclobenzaprine [Flexeril] 5 mg PO BID PRN 07/25/16 [History] Doxercalciferol [Hectorol] 0 - 10 mcg IV ASDIRECTED 07/25/16 [History] Epoetin Davon [Epogen] 0 - 60,000 unit IJ ASDIRECTED 07/25/16 [History] Esomeprazole [NexIUM] 40 mg PO DAILY 07/25/16 [History] Estrogens, Conjugated [Premarin Vaginal Crm] 1 gm VAG BEDTIME 07/25/16 [History] Ezetimibe [Zetia] 10 mg PO DAILY 07/25/16 [History] Fluticasone Propionate [Flonase] 2 spr CLAUDINE DAILY 07/25/16 [History] Fluticasone/Vilanterol [Breo Ellipta 200-25 Mcg INH] 1 puff ORAL.INH DAILY 07/25 [History] Folic Acid 1 mg PO DAILY 07/25/16 [History] Furosemide 20 mg PO SUMOWEFR 07/25/16 [History] Gabapentin [Neurontin] 100 mg PO BID 07/25/16 [History] Hydrocodone/Acetaminophen [[place] 5-325] 0.5 - 1 tab PO TID 07/25/16 [History] LORazepam 0.5 mg PO BID PRN 07/25/16 [History] Losartan [Cozaar] 100 mg PO DAILY 07/25/16 [History] Multivit with Calcium,Iron,Min [One Daily with Calcium-Iron] 1 tab PO DAILY [History] Niacin 500 mg PO BID 07/25/16 [History] Nitroglycerin [Nitrostat] 0.4 mg SL ASDIRECTED PRN 07/25/16 [History] [place]-3/DHA/Epa/Fish Oil [[place]-3 Fish Oil 1,000 MG Sfgl] 1,000 mg PO DAILY [History] Protein Supplement [Protein Powder] 1 scoop PO BID 07/25/16 [History] Sertraline HCl 50 mg PO DAILY 07/25/16 [History] Sevelamer Carbonate [Renvela] 1,600 mg PO TID 07/25/16 [History] atorvaSTATin [Lipitor] 20 mg PO DAILY 07/25/16 [History] hydrALAZINE [Apresoline] 50 mg PO TID 07/25/16 [History] Biotin 10,000 mcg PO DAILY 01/11/17 [History] Folic Acid 0.4 mg PO DAILY 01/11/17 [History] Vit A/Vit C/Vit E/Zinc/Copper [Preservision] 2 each PO DAILY 01/11/17 [History] fentaNYL [Fentanyl] 25 mcg TRDERM ASDIRECTED 01/11/17 [History] Albuterol/Ipratropium [Combivent Respimat] 2 puff IH BID PRN 09/27/17 [History] Carboxymethylcellulose Sodium [Refresh Tears 0.5%] 1 drop OP BID 09/27/17 [ History] Carvedilol [Coreg] 25 mg PO BID 09/27/17 [History] Insulin Glarg,Human.Rec.Analog [Lantus] 5 unit SQ BID 09/27/17 [History] Lidocaine/Prilocaine [Lidocaine-Prilocaine Cream] 1 applic TP DAILY 09/27/17 [ History] Magnesium Gluconate [Magonate] 500 mg PO DAILY 09/27/17 [History] Phytonadione [Vitamin K] 100 mcg PO ASDIRECTED 09/27/17 [History] Pregabalin [Lyrica] 25 mg PO DAILY 09/27/17 [History] Sodium Ferric Gluconate Cmplex [Ferrlecit] 0 - 125 mg IV ASDIRECTED 09/27/17 [ History] Sodium Polystyrene Sulfon/Sorb [Sps 15 gm/60 ml Suspension] 120 ml PO DAILY [History] Warfarin [Coumadin] 2.5 mg PO ASDIRECTED 09/27/17 [History] amLODIPine [Norvasc] 5 mg PO BEDTIME 09/27/17 [History] Past Medical History Cardiovascular History: Reports: Afib, Bypass, High Cholesterol, Hypertension, NM, SOB on Exertion Respiratory History: Reports: Asthma Gastrointestinal History: Reports: Chronic Constipation, GERD Genitourinary History: Reports: Acute Renal Failure FILLETER History: Reports: Other FILLETER History: HYSTERECTOMY Musculoskeletal History: Reports: Back Pain, Chronic Other Musculoskeletal History: R knee injection 08/30/2015, Neurological History: Reports: Vertigo Psychiatric History: Reports: Anxiety, Depression Endocrine/Metabolic History: Reports: Diabetes, Type II Hematologic History: Reports: Anemia, Blood Transfusion(s), Iron Deficiency - Infectious Disease History Infectious Disease History: Reports: Chicken Pox, Measles, Meningitis, Mumps - Past Surgical History HEENT Surgical History: Reports: Cataract Surgery Cardiovascular Surgical History: Reports: Coronary Artery Bypass GI Surgical History: Reports: Cholecystectomy, Colonoscopy Other Female Surgeries/Procedures: BORN WITH ONLY 1 SMALL KIDNEY Other Musculoskeletal Surgeries/Procedures:: RHEUMATOID ARTHRITIS Social & Family History - Family History Family Medical History: Noncontributory - Caffeine Use Caffeine Use: Reports: Coffee ED ROS GENERAL - Review of Systems Review Of Systems: See Below Constitutional: Reports: Malaise HEENT: Reports: No Symptoms Respiratory: Reports: No Symptoms Cardiovascular: Reports: No Symptoms Endocrine: Reports: No Symptoms GI/Abdominal: Reports: No Symptoms : Reports: No Symptoms Musculoskeletal: Reports: Other (generalized joint pain) Skin: Reports: Bruising Neurological: Reports: No Symptoms Psychiatric: Reports: No Symptoms Hematologic/Lymphatic: Reports: Easy Bleeding Immunologic: Reports: No Symptoms ED EXAM, GENERAL - Physical Exam Exam: See Below Exam Limited By: No Limitations General Appearance: Alert, WD/WN, No Apparent Distress, Anxious, Thin Throat/Mouth: Normal Inspection, Normal Lips, Normal Voice, No Airway Compromise Head: Normocephalic Neck: Normal Inspection, Supple, Non-Tender Respiratory/Chest: No Respiratory Distress, Lungs Clear, Normal Breath Sounds, Chest Non-Tender Cardiovascular: Regular Rate, Rhythm, No Edema, No Gallop, No JVD, Systolic Murmur (grade IV/) GI/Abdominal: Normal Bowel Sounds, Soft, Non-Tender, No Organomegaly, No Distention, No Mass (Female) Exam: Deferred Rectal (Female) Exam: Deferred Back Exam: Normal Inspection Extremities: Normal Range of Motion, Other (R arm: fistula site is bleeding slowly with BRB at site of last cannulation) Neurological: Alert, Oriented, CN II-XII Intact, Normal Cognition, Normal Gait Psychiatric: Normal Affect, Anxious Skin Exam: Warm, Dry, No Rash, Ecchymosis Lymphatic: No Adenopathy Course - Vital Signs Text/Narrative:: The CBC noted Hgb 9.0 gm, WBC 10,800, plts 297,00. The INR 8.27/PT 89.7. Supratherapeutic levels apparently contributing to bleeding issues. The case monitor notes NSR. I elected to proceed with Vit K 5 mg IV over 30 minutes. The bleeding site was redressed prior to administration of Vit K, and monitored closely. Last Recorded V/S: Last Vital Signs Temp 36.8 C 01/27/18 07:43 Pulse 77 01/27/18 07:43 Resp 18 01/27/18 07:43 BP 140/25 L 01/27/18 07:43 Pulse Ox 100 01/27/18 07:43 - Orders/Labs/Meds Orders: Active Orders 24 hr Category Date Time Status Sodium Chloride 0.9% [Saline Flush] Med 01/27/18 08:37 Active 10 ml FLUSH ASDIRECTED PRN Peripheral IV Insertion Adult [OM.PC] Routine Oth 01/27/18 08:37 Ordered Medication Orders Sodium Chloride (Saline Flush) 10 ml FLUSH ASDIRECTED PRN PRN Reason: Keep Vein Open Last Admin: 01/27/18 09:09 Dose: 10 ml Labs: Laboratory Tests 01/27/18 01/27/18 Range/Units 08:02 08:02 WBC 10.8 (4.5-12.0) X10-3/uL RBC 2.92 L (3.23-5.20) x10(6)uL Hgb 9.0 L D (11.5-15.5) g/dL Hct 28.0 L D (30.0-51.3) % MCV 96.0 (80-96) fL MCH 30.9 (27.7-33.6) pg MCHC 32.1 L (32.2-35.4) g/dL RDW 23.0 H (11.5-15.5) % Plt Count 297 (125-369) X10(3)uL MPV 7.8 (7.4-10.4) fL Neut % (Auto) 75.2 (46-82) % Lymph % (Auto) 15.4 (13-37) % [place] % (Auto) 5.5 (4-12) % Eos % (Auto) 1 (1.0-5.0) % Baso % (Auto) 3 H (0-2) % Neut # (Auto) 8.0 (1.6-8.3) # Lymph # (Auto) 1.7 (0.6-5.0) # Fall[place] # (Auto) 0.6 (0.0-1.3) # Eos # (Auto) 0.1 (0.0-0.8) # Baso # (Auto) 0.4 H (0.0-0.2) # PT 89.7 H* (8.7-11.1) INR 8.27 H* (0.89-1.13) Meds: Medications Generic Name Dose Route Start Last Admin Trade Name Freq PRN Reason Stop Dose Admin Sodium Chloride 10 ml 01/27/18 08:37 01/27/18 09:09 Saline Flush FLUSH 10 ml ASDIRECTED PRN Administration Keep Vein Open Discontinued Medications Generic Name Dose Route Start Last Admin Trade Name Freq PRN Reason Stop Dose Admin Phytonadione 5 mg/ Sodium 50.5 mls @ 100 mls/hr 01/27/18 08:34 01/27/18 09:09 Chloride IV 01/27/18 09:04 100 mls/hr NOW ONE Administration Departure - Departure Time of Disposition: 10:20 Disposition: Home, Self-Care 01 Condition: Good Clinical Impression: Hemorrhage secondary to anti-coagulation - Discharge Information *PRESCRIPTION DRUG MONITORING PROGRAM REVIEWED*: Not Applicable *COPY OF PRESCRIPTION DRUG MONITORING REPORT IN PATIENT FABRICIO: Not Applicable Instructions: Bleeding Precautions When on Anticoagulant Therapy, Pediatric, Prothrombin Time, International Normalized Ratio Test Referrals: Shan Young MD [Primary Care Provider] - Forms: ED Department Discharge - Problem List & Annotations (1) Hemorrhage secondary to anti-coagulation SNOMED Code(s): 120241855 Code(s): T45.7X1A - POISN BY ANTICOAG ANTAG, VITAMIN K AND OTH COAG, ACC, INIT; D68.9 - COAGULATION DEFECT, UNSPECIFIED Status: Acute Current Visit: Yes Annotation/Comment:: Lesly was advised to return to [facility] ED with any progression of bleeding issues in lieu of dialysis appointment tomorrow at [facility]. - Problem List Review Problem List Initiated/Reviewed/Updated: Yes - My Orders Last 24 Hours: My Active Orders 01/27/18 08:37 Sodium Chloride 0.9% [Saline Flush] 10 ml FLUSH ASDIRECTED PRN Peripheral IV Insertion Adult [OM.PC] Routine - Assessment/Plan Last 24 Hours: My Active Orders 01/27/18 08:37 Sodium Chloride 0.9% [Saline Flush] 10 ml FLUSH ASDIRECTED PRN Peripheral IV Insertion Adult [OM.PC] Routine Plan: Follow up with Dialysis Unit at [facility] and Cardiology regarding managment.
[2018-01-27 18:27] VITALS: BP 135/42
== END 2018-01-27 10:58 | disposition home or self-care (01) ==
LOC: FB.ED 07:31
DX: T82.838A Hemorrhage due to vascular prosthetic devices, implants and grafts, initial encounter (principal); I10 Essential (primary) hypertension; E78.00 Pure hypercholesterolemia, unspecified; I48.91 Unspecified atrial fibrillation; I25.810 Atherosclerosis of coronary artery bypass graft(s) without angina pectoris; I25.2 Old myocardial infarction; N17.9 Acute kidney failure, unspecified; Z88.8 Allergy status to other drugs, medicaments and biological substances; Z88.0 Allergy status to penicillin; Z88.5 Allergy status to narcotic agent; Z79.899 Other long term (current) drug therapy; Z79.01 Long term (current) use of anticoagulants
CPT/HCPCS: 36415; 85025; 85610; 96365; 99282; J3430; J7050